=== PATIENT | female | born 1980 | race Caucasian/White ===

== ENCOUNTER 2019-06-12 08:05 | Emergency (ER) | payer BC, SELFPAY ==
[2019-06-12 08:12] VITALS: BP 103/58; PULSE 84; RESP 14; TEMP 36.4; O2SAT 100
[2019-06-12 08:42] LABS: Basophils Percent Auto 0.1 % (0.2-1.2); Eosinophils Percent Auto 0.3 % (0-4.4); Hematocrit 42.2 % (37.0-47.0); Hemoglobin 14.3 g/dL (12.0-15.0); Immature Granulocyte Absolute 0.03 K/mm3 (0.00-0.031); Immature Granulocyte Percent A 0.3 % (0-0.5); Lymphocytes Absolute Auto 1.55 K/mm3 (0.9-3.2); Lymphocytes Percent Auto 16.7 % (18.3-44.2); Mean Corpuscular HGB Conc 33.9 g/dl (32-36); Mean Corpuscular Hemoglobin 30.7 pg (26-34); Mean Corpuscular Volume 90.6 fl (80-100); Mean Platelet Volume 10.3 fl (7.4-10.4); Monocytes Absolute Auto 0.5 K/mm3 (0.1-0.6); Monocytes Percent Auto 5.3 % (2.6-8.5); Neutrophils Absolute Auto 7.2 K/mm3 (1.3-6.7); Neutrophils Percent Auto 77.3 % (45.5-73.1); Platelet Count Result 183 k/mm3 (150-375); Red Blood Count 4.66 M/mm3 (4.2-5.4); Red Cell Distribution Width 11.9 % (11.5-14.5); White Blood Count 9.3 K/mm3 (4.5-10.0)
[2019-06-12 08:52] LABS: Alanine Aminotransferase 28 U/L (4-35); Albumin Level 4.2 g/dL (3.5-5.1); Alkaline Phosphatase 67 U/L (38-126); Aspartate Amino Transferase 31 U/L (14-36); Bilirubin,Total 1.7 mg/dL (0.2-1.3); Blood Urea Nitrogen 10 mg/dL (7-17); Calcium 8.6 mg/dL (8.4-10.2); Carbon Dioxide 27 mmol/L (22-30); Chloride 103 mmol/L (98-107); Estimated CRCL calculation 64 ml/min; Estimated Glomerular Filt Rate > 60; Glucose 91 mg/dL (65-105); Lipase 72 U/L (23-300); Potassium 3.6 mmol/L (3.4-5.0); Sodium 139 mmol/L (137-145)
--- NOTE | 2019-06-12 09:43 | ED.ABDPAIN ---
HPI - Abdominal Pain General Chief Complaint: Abdominal Pain Stated Complaint: Bloody Diarrhea Time Seen by Provider: 06/12/19 09:06 Source: patient Mode of arrival: ambulatory Limitations: no limitations History of Present Illness HPI narrative: Patient is a 39-year-old female who presents to emergency department for evaluation of rectal bleeding and diarrhea that began yesterday patient notes that she had some chills sweats and cramping followed by loose stools and had been straining and after which developed some bright red blood per rectum patient denies any fever chills nausea vomiting notes that her diarrhea is resolved patient is noticed bright blood and mucus with cramping of the abdomen. Patient denies recent antibiotic use travel or sick contacts. Patient on arrival to emergency department resting comfortably in the room in no distress. Patient does not take anything for her symptoms. Patient notes a week ago she got over the flu which has resolved Related Data Home Medications Medication Instructions Recorded Confirmed metronidazole 1 applic TOPICAL DAILY 06/12/19 Allergies Allergy/AdvReac Type Severity Reaction Status Date / Time Sulfa (Sulfonamide Allergy Mild Hives Verified 06/12/19 09:50 Antibiotics) Review of Systems Review of Systems: All systems reviewed & are unremarkable except as noted in HPI and below PMFSH Surgical History Surgical History H/O section Social History Social History Smoking status: Current every day smoker Gender identity (if verbalized by the patient): Female Exam Narrative: Exam Narrative: GENERAL: Well-appearing, well-nourished, and in no acute distress. HEAD: Normocephalic, atraumatic. EYES: PERRLA and EOMI. ENT: Nares clear, no rhinorrhea or epistaxis. Mucous membranes moist. Oropharynx without tonsillar hypertrophy exudate or other lesions. NECK: Supple. No adenopathy or masses. CHEST: Clear to auscultation. No respiratory distress. No wheezes rales or rhonchi HEART: Regular rate and rhythm. No murmur heard. Normal peripheral pulses. ABDOMEN: Soft, nontender, nondistended EXTREMITIES: Normal range of motion. No edema. SKIN: Warm, dry, no rash. NEURO: No focal deficits. Alert and oriented x3. PSYCH: Normal mood and affect. Course Course Emergency Course: Patient in the room in no distress aware of case findings treatment plan and diagnosis agreeing to follow-up as directed or to return if symptoms worsen or concerns Vital Signs Vital signs: Vital Signs Temperature 97.5 F L 06/12/19 08:12 Pulse Rate 84 06/12/19 08:12 Respiratory Rate 14 06/12/19 08:12 Blood Pressure 103/58 L 06/12/19 08:12 Pulse Oximetry 100 06/12/19 08:12 Temperature 97.5 F L 06/12/19 08:12 Pulse Rate 84 06/12/19 08:12 Respiratory Rate 14 06/12/19 08:12 Blood Pressure 103/58 L 06/12/19 08:12 Pulse Oximetry 100 06/12/19 08:12 MDM - Abdominal Pain MDM Narrative Medical decision making narrative: Patient in the room in no distress aware of case findings treatment plan and diagnosis with likely enteritis possibly rectal bleeding secondary to colitis or more likely internal hemorrhoid bleeding patient with normal vital signs not orthostatic no high risk changes in the blood work felt appropriate for outpatient reevaluation provided with reasons to return agreeing to do so if symptoms worsen patient is resting comfortably in the room in no distress nontender abdominal exam Lab Data Result diagrams: 06/12/19 08:29 06/12/19 08:30 Labs: Lab Results 06/12/19 06/12/19 06/12/19 Range/Units 08:29 08:29 08:30 WBC 9.3 (4.5-10.0) K/mm3 RBC 4.66 (4.2-5.4) M/mm3 Hgb 14.3 (12.0-15.0) g/dL Hct 42.2 (37.0-47.0) % MCV 90.6 (80-100) fl MCH 30.7 (26-34) pg MCHC 33.9 (32-36) g/
[2019-06-12 09:46] VITALS: BP 111/78; PULSE 67
[2019-06-12 09:47] VITALS: BP 108/75; PULSE 77
[2019-06-12 09:48] VITALS: BP 100/74; PULSE 87
[2019-06-12 09:49] VITALS: BP 111/74; PULSE 67; RESP 14; O2SAT 100
[2019-06-12] MEDS: FAMOTIDINE 20 MG/2 ML VIAL IV PUSH (09:55)
[2019-06-12] MEDS: SODIUM CHLORIDE 0.9% IV 1,000 ML 999 ML IV CONT (09:55)
[2019-06-12 10:43] VITALS: BP 108/77; PULSE 71; RESP 17; O2SAT 100
== END 2019-06-12 10:44 | disposition home or self-care (01) ==
PROVIDERS: Emergency Provider Emergency Medicine; PCP Internal Medicine
DX: R10.9 Unspecified abdominal pain (principal); F17.210 Nicotine dependence, cigarettes, uncomplicated
CPT/HCPCS: 36415; 80053; 81025; 83690; 85025; 96361; 96374; 99284; J7030

== ENCOUNTER → 2022-06-20 13:17 | Outpatient (CLI) | payer BC, SELFPAY ==
--- NOTE | ~2022-06-20 | MM_ITS ---
EXAMINATION: MM screening anne-marie BI w donny HISTORY: Screening TECHNIQUE: Craniocaudal and mediolateral oblique 3-D tomosynthesis images were obtained and synthetic 2-D images were generated. CAD analysis was submitted and interpreted. COMPARISON: No prior studies for comparison. BREAST PARENCHYMAL COMPOSITION: The breasts are heterogeneously dense, which may obscure small masses . FINDINGS: There is no evidence of suspicious mass, calcification, or architectural distortion to sugg est malignancy in either breast. There has been no suspicious interval change. IMPRESSION: 1. No mammographic evidence of malignancy. 2. Recommend routine screening mammography in one year. BI-RADS Category 1: Negative Reviewed, dictated and finalized at location A.
== END ==
PROVIDERS: PCP Obstetrics & Gynecology; Visit Provider Obstetrics & Gynecology
DX: Z12.31 Encounter for screening mammogram for malignant neoplasm of breast (principal)
CPT/HCPCS: 77063; 77067

== ENCOUNTER 2024-03-14 12:00 | Outpatient (CLI) | payer BC, SELFPAY ==
--- NOTE | ~2024-03-14 | MM_ITS ---
EXAMINATION: MM screening anne-marie BI w donny HISTORY: Screening TECHNIQUE: Craniocaudal and mediolateral oblique 3-D tomosynthesis images were obtained and synthetic 2-D images were generated. CAD analysis was submitted and interpreted. COMPARISON: 06/20/2022 BREAST PARENCHYMAL COMPOSITION: Dense: The breasts are heterogeneously dense, which may obscure small masses FINDINGS: There is no evidence of suspicious mass, calcification, or architectural distortion to sugg est malignancy in either breast. There has been no suspicious interval change. IMPRESSION: 1. No mammographic evidence of malignancy. 2. Recommend routine screening mammography in one year. BI-RADS Category 1: Negative Reviewed, dictated and finalized at location B. 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
== END 2024-03-14 12:01 | disposition home or self-care (01) ==
LOC: MICIMG 12:01
PROVIDERS: PCP Hospitalist; Visit Provider Obstetrics & Gynecology
DX: Z12.31 Encounter for screening mammogram for malignant neoplasm of breast (principal)
CPT/HCPCS: 77063; 77067

== ENCOUNTER 2025-03-24 13:00 | Outpatient (CLI) | payer BC, SELFPAY ==
--- NOTE | ~2025-03-24 | MM_ITS ---
EXAMINATION: MM screening anne-marie BI w donny HISTORY: Screening. TECHNIQUE: Craniocaudal and mediolateral oblique 3-D tomosynthesis images were obtained and synthetic 2-D images were generated. CAD analysis was submitted and interpreted. COMPARISON: 2023 and 2022 BREAST PARENCHYMAL COMPOSITION: Dense: The breasts are heterogeneously dense, which may obscure small masses. FINDINGS: No suspicious masses are seen. There are no suspicious calcifications. No unexplained architectural distortion is seen. There are no skin or nipple abnormalities identified. There is no adenopathy seen on the images submitted. IMPRESSION: No mammographic evidence to suggest malignancy is seen. The patient may return to screening mammography as per ACR guidelines. BI-RADS 1 - Negative. Reviewed, dictated and finalized at location A. ERBUG OPERATOR
--- OUTSIDE RECORDS SUMMARY | 2025-03-24 14:45 | XMS_ITS | Encounter Summary ---
Author Organization [facility] Healthcare Address [address] [place] [id number] Care Team Providers Care Sawyer Cork Slabs Name Role Phone Luís Alejandra MD Primary Care Provider [phone] Encounter Details Date Type Department Care Team (Late st Contact Info) Description 12/23/2024 Telephone Family Phys[facility] [address] [place] [address] Luís Alejandra MD [address] [place] [address] Social History Tobacco Use Types Packs/Day Years Used Date Smoking Tobacco: Never Smokeless Tobacco: Never AUDIT-C Answer Date Recorded Q1: How often do you have a drink containing alc ohol? 2-4 times a month 10/03/2024 Q2: How many drinks containi ng alcohol do you have on a typical day when you are drinking? 1 or 2 10/03/2024 Q3: How often do you have si x or more drinks on one occasion? Never 10/03/2024 PHQ-2 Answer Date Recorded PHQ-2 Total Score (If total score is 3 or more points, staff should administer the PHQ-9) 1 03/25/2024 PHQ-9 Answer Date Recorded PHQ-9 Total Score 2 03/25/2024 Personal Safety Answer Date Recorded Have you ever been in or are you currently in a harmful physical or emotional relationship or is someone making you feel afraid or unsafe? 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
--- OUTSIDE RECORDS SUMMARY | 2025-03-24 14:45 | XMS_ITS | Clinical Summary ---
Author Organization [facility] Address [address] [place] [address] Care Team Providers Care Plant Floor Automation Manager Name Role Phone Jemal Cavazos MD Primary Care Provider [phone] Allergies Active Allergy Reactions Criticality Noted Date Comments Sulfa Antibiotics Unknown 10/03/2012 Medications meclizine 12.5 MG tablet Take 12.5 mg by mouth 3 (three) times daily as needed for Dizziness. Active montelukast 10 MG tabletIndications:A sthma ([facility]) Take 1 tablet (10 mg total) by mouth nightly at bedtime. 90 tablet 3 0 Active Levocetirizine Dihydrochloride 5 MG TabIndications:Asth ma ([facility]) Take 1 tablet by mouth nightly at bedtime. 90 tablet 3 0 Active albuterol sulfate HFA 108 (90 Base) MCG/ACT inhalerIndications: Asthma ([facility]) Inhale 2 puffs into the lungs every 4 (four) hours as needed for Wheezing or Shortness of breath. 3 Inhaler 3 0 Active temazepam 30 MG capsuleIndications: Primary insomnia Take 1 capsule (30 mg total) by mouth nightly as needed for Sleep. 30 capsule 2 0 Active CITALOPRAM 20 MG tabletIndications:R ecurrent major depressive disorder, in full remission TAKE 1 TABLET BY MOUTH EVERY DAY 90 tablet 0 Active metroNIDAZOLE 0.75 % creamIndications:Ro sacea Apply topically daily. Patient must be seen for further refills 45 g 1 Active Active Problems Problem Noted Date Diagnosed Date Vertigo 02/11/2019 Vaginal discharge 09/15/2015 Urinary tract infection 06/15/2015 Sinusitis 12/29/2014 Fatigue 04/29/2014 Abnormal menses 10/03/2012 Anxiety 10/03/2012 Asthma 10/03/2012 Depression 10/03/2012 Rosacea 10/03/2012 Social History Tobacco Use Types Packs/Day Years Used Date Smoking Tobacco: Never Smokeless Tobacco: Never Alcohol Use Standard Drinks/Week Comments Yes 0 (1 standard drink = 0.6 oz pur e alcohol) AUDIT-C Answer Date Recorded Frequency of Alcohol Consumption Monthly or less 02/11/2019 Average Number of Drinks 1 or 2 019 Frequency of Binge Drinking Never 02/01 PHQ-2 Answer Date Recorded PHQ-2 Score 0 03/12/2019 Comments No Sex and Gender Information Value Date Recorded Sex Assigned at Not on file Legal Sex Female 8:00 PM CDT Gender Identity Not on file Sexual Orientation Not on file Last Filed Vital Signs Vital Sign Reading Time Taken Comments Blood Pressure 112/70 06/10/2019 11:24 AM CDT Pulse 63 06/10/2019 11:24 AM CDT Temperature - - Respiratory Rate 18 06/10/2019 11:24 AM CDT Oxygen Saturation 96% 06/10/2019 11:24 AM CDT Inhaled Oxygen Concentration - - Weight 56.2 kg (124 lb) 06/10/2019 11:24 AM CDT Height 157.5 cm (5' 2) 06/10/2019 11:24 AM CDT Body Mass Index 22.68 06/10/2019 11:24 AM CDT Plan of Treatment Health Maintenance Due Date Last Done Comments Cervical Cancer Screening Pa p Smear (Age 30 to 64) Every 3 Years 1979 Colorectal Cancer Screening Colonoscopy (10 Years) 1979 Annual Physical 06/03/1982 Hepatitis C 06/03/1997 DTaP, Tdap and Td Vaccines ( 1 - Tdap) 06/03/1998 Hepatitis B Vaccines (1 of 3 - 19+ 3-dose series) 06/03/1998 Pneumococcal Vaccine: Pediat rics (0 to 5 Years) and At-Risk Patients (6 to 49 Years) (1 of 2 - PCV) 06/03/1998 HPV Vaccines (1 - 3-dose SCD M series) 06/03/2006 Cervical Cancer Screening Pa p with HPV Testing (Age 30 to 64) Every 5 Years 06/03/2009 Cervical Cancer Screening with HPV 06/03/2009 Mammogram Screening 2019 COVID-19 Vaccine (2024-2 6 season) 2024 Influenza Adult (#1) 2025 Hepatitis A Vaccines Aged Out No long er eligible based on patient's age to complete this topic Meningococcal B Vaccine Aged Out No l onger eligible based on patient's age to complete this topic Meningococcal Vaccine Aged Out No jo ann olga eligible based on patient's age to complete this topic RSV Immunizations Under 20 Months Aged Out No longer eligible based on patient's age to complete this topic Insurance [facility] [address] Care Teams Plant Floor Automation Manager Relationship Specialty Start Date End Date Jemal Cavazos MD [address] [place], [place] [id number] PCP - General INTERNAL MEDICINE 02/11/19
--- OUTSIDE RECORDS SUMMARY | 2025-03-24 14:45 | XMS_ITS | Clinical Summary ---
Author Organization [address] Address [address] [facility] [address] [place] [address] Care Team Providers Care Monitor And Storage Bin Tender Name Role Phone Luís Alejandra MD Primary Care Provider [phone] Allergies Active Allergy Reactions Criticality Noted Date Comments Latex Hives Medium 07/16/2020 Sulfa (Sulfonamide Antibiotics) Hives Medium 07/02 Medications ALBUTEROL SULFATE INHAL Inhale Active nitrofurantoin (MACRODANTIN) 100 mg capsule Take 1 capsule (100 mg total) by mouth 01/26/20 23 Active benzonatate (TESSALON) 100 mg capsuleIndicati ons:Cough Take 1 capsule (100 mg total) by mouth 3 (three) times a day as needed for cough 30 capsule 06/12/19 24 Active magnesium glycinate 100 mg tablet Take 120 mg by mouth as needed For hip joint pain and anxiety; pt takes up to 2-4x daily 10/16/19 24 Active APPLE CIDER VINEGAR ORAL Take 750 mg by mouth 2 (two) times a day For appetite suppression 10/16/19 24 Active vit D3-vit U-fcofwfmac-cxg s [phone] udkf-fpe-eb-mg tablet Take by mouth Active senna (SENOKOT) 8.6 mg tablet Take 1-2 tablets daily as needed for management of chronic constipation. 60 tablet 1 03/25/20 24 Active simethicone (MYLICON) 125 mg chewable tablet Take 1 tablet (125 mg total) by mouth 4 (four) times a day as needed (cramping/bloati ng/gas/nausea) 120 tablet 3 03/25/20 24 Active famotidine (PEPCID) 20 mg tablet Take 1 tablet (20 mg total) by mouth 2 (two) times a day as needed for indigestion or heartburn 180 tablet 1 03/25/20 24 Active naltrexone (DEPADE) 50 mg tabletIndicatio ns:Current mild episode of major depressive disorder, unspecified whether recurrent Take 1 tablet (50 mg total) by mouth daily 30 tablet 11 04/05/19 25 026 Active metroNIDAZOLE (METROCREAM) 0.75 % cream APPLY TO AFFECTED AREA TWICE A DAY 45 g 1 06/18/19 25 Active meclizine (ANTIVERT) 12.5 mg tablet TAKE 1 TABLET BY MOUTH 3 TIMES A DAY NEEDED FOR DIZZINESS. 90 tablet 4 06/19/19 25 Active omega-3 fatty acids-fish oil 300-1,000 mg capsule Take 2 capsules (2 g total) by mouth daily Active biotin 10,000 mcg capsule Take by mouth Acti ve Lactobac. rhamnosus GG-inulin 10 billion cell -200 mg capsule, sprinkle Take by mouth Active polyethylene glycol (MIRALAX) 17 gram packetIndicatio ns:constipation Take 1 packet (17 g total) by mouth daily Active bisacodyl EC (DULCOLAX EC) 5 mg EC tabletIndicatio ns:constipation Take 1 tablet (5 mg total) by mouth daily as needed for constipation Active carboxymethylce llulose (REFRESH PLUS) 0.5 % dropperette 1 drop Active buPROPion XL (WELLBUTRIN XL) 150 mg 24 hr tabletIndicatio ns:Current mild episode of major depressive disorder, unspecified whether recurrent Take 2 tablets (300 mg total) by mouth every morning 180 tablet 1 12/24/19 25 Active albuterol HFA (PROVENTIL HFA,VENTOLIN HFA,PROAIR HFA) 90 mcg/actuation inhaler Inhale 2 puffs every 6 (six) hours as needed for shortness of breath or wheezing 8.5 each 14 01/28/20 25 Active temazepam (RESTORIL) 30 mg capsule temazepam 30 mg capsule TK ONE C PO QHS 10/29/19 20 04/15/2 021 Discontin ued(Reord er) Active Problems Problem Noted Date Diagnosed Date Physical exam, annual 04/08/2024 Assessment & Plan (04/08/2024 1:59 PM ORGANIZATION DEVELOPMENT CONSULTANT): - overdue for mammogram, encouraged to schedule - follow-up with rn on site for routine well-woman care/cervical cancer screening - colonoscopy for 09/13/24 - routine labs reviewed - recommend flu vaccine, COVID booster Elevated lipoprotein(a) 04/08/2024 Assessment & Plan (04/08/2024 2:09 PM ORGANIZATION DEVELOPMENT CONSULTANT): - chronic; LDL elevated at 154, goal < 100 - T chol 214, HDL 47, triglycerides 75 - low ASCVD risk- < 0.7% - recommend lifestyle modifications including low-fat/high-fiber diet, increase physical activity; if persistently elevated, may consider low-dose statin therapy The 10-year ASCVD risk score (Aida JAMA, et al., 2019) is: 0.7% Values used to calculate the score: Age: 43 years Sex: Female Is Non- : No Diabetic: No Tobacco smoker: No Systolic Blood Pressure: 103 mmHg Is BP treated: No HDL Cholesterol: 47 mg/dL Total Cholesterol: 214 mg/dL Overweight with body mass in dex (BMI) of 28 to 28.9 in adult 04/08/2024 Assessment & Plan (04/08/2024 2:33 PM ORGANIZATION DEVELOPMENT CONSULTANT): - Pt reports difficulty losing weight, interested in medication-assisted weight loss, discussed available options including bupropion-naltrexone, she will contact office if would like to initiate - low-fat/high-fiber diet - aim for at least 150 min moderate to intense aerobic activity weekly Encounter for screening colonoscopy 11/09/2023 BRBPR (bright red blood per rectum) 04/07/2023 Constipation 04/07/2023 Family history of colon cancer 04/07/2023 Change in bowel habits 04/07/2023 Meniere's disease (cochlear hydrops), unspecified laterality 01/12/2022 Assessment & Plan (04/18/2022 12:58 PM ORGANIZATION DEVELOPMENT CONSULTANT): Patient reports abnormal sensation, and ear fullness at beginning a day, especially with significant changes in weather Unclear if presentation from Meniere's disease verses other conditions Will continue to monitor Assessment & Plan (01/12/2022 10:53 AM CDT): Patient has few episodes of vertigo or disequilibrium Occurs mostly immediately after traveling Has had few episodes since 2017; no significant has episodes since 2018 until December 2021 Will continue to monitor, if symptoms become more frequent or persistent; will evaluate for dietary or medical treatment options Primary insomnia 07/12/2021 Assessment & Plan (11/07/2022 2:56 PM CDT): Stable, generally well controlled; improving; patient reports she is sleeping better and she is in sober housing Continue to monitor Assessment & Plan (07/12/2021 11:05 AM CDT): Unclear etiology; patient is able to initiate sleep well, but has episodes of waking up in unable to fall back asleep Patient reports some increased stressors at home given family health concerns Encouraged patient to work on techniques to help falling back asleep, including getting out of bed, working on small quiet task, and continued with journaling as well as reading If no improvement, would recommend patient refer to counseling Menometrorrhagia 07/16/2020 Fibrocystic disease of breast 07/16/2020 Adhesive capsulitis of right shoulder 02/25/2020 Rosacea 10/03/2012 Assessment & Plan (11/07/2022 2:56 PM CDT): Stable, well controlled; continue MetroCream p.r.n. Assessment & Plan (08/04/2020 8:39 AM CDT): Stable, continue with Hydrogel Discussed with patient avoiding irritants Depression 10/03/2012 Assessment & Plan (04/08/2024 2:04 PM ORGANIZATION DEVELOPMENT CONSULTANT): - chronic, partially controlled - discussed starting bupropion XL 150 mg daily, she will notify office if she would like to start Asthma 10/03/2012 Assessment & Plan (11/07/2022 2:57 PM CDT): No major issues; continue albuterol p.r.n. Assessment & Plan (04/18/2022 12:58 PM ORGANIZATION DEVELOPMENT CONSULTANT): Generally well controlled, the patient reports recent increase in use due to multiple viral infections Uses albuterol as often as every 4 hours for severe cold symptoms and wheezing Continue albuterol p.r.n.; Assessment & Plan (01/12/2022 10:52 AM CDT): Rare issues with dyspnea; has been well controlled with change in seasons Will continue to monitor Assessment & Plan (12/13/2021 3:15 PM CDT): Stable, well controlled; continue Claritin daily p.r.n. Albuterol p.r.n. Assessment & Plan (07/12/2021 11:06 AM CDT): Stable, well controlled; mostly seasonal in nature at due to high pollen counts Patient continue Xyzal 5 mg, singular 10 mg nightly Albuterol p.r.n. for exacerbation Assessment & Plan (08/04/2020 8:39 AM CDT): Stable, well controlled on the new, using albuterol, Singulair and Xyzal for management Will continue to monitor, if patient requires increased dose of albuterol well encouraged to start daily inhaled steroid ELIAS (generalized anxiety disorder) 10/03/2012 Assessment & Plan (04/08/2024 2:12 PM ORGANIZATION DEVELOPMENT CONSULTANT): - chronic, partially controlled - discussed starting bupropion XL 150 mg daily, she will notify office if she would like to start- aware that this medication may cause worsening anxiety in some individuals - continues on diazepam prn Assessment & Plan (11/07/2022 2:56 PM CDT): Has stresso for high anxiety situations rs; going through divorce, but not living in environment -not always exposed -follows with individual counseling -avoids ex-; does lots of self coping, positive thoughts -sleeping has improved Given concerns of continued weight gain; will discontinue citalopram 20 mg daily; start Valium2 mg p.r.n. Assessment & Plan (04/18/2022 12:59 PM ORGANIZATION DEVELOPMENT CONSULTANT): Stable, well controlled; reports improvement with mood, feeling more at ease No longer suffering from significant insomnia Has improvement of symptoms with individual counseling Patient reports some side effects including possible weight gain caused by citalopram; reviewing records, patient is up about 3 lb from heaviest weight, 8 lb for most recent weight Continue citalopram 20 mg daily Will continue to monitor, if patient continues to gain weight, will discuss other therapeutic options Assessment & Plan (01/12/2022 10:52 AM CDT): Well controlled; anxiety is improved with Celexa; controlled current dose, no need for Ativan 2 mg continue citalopram 20 mg daily Assessment & Plan (12/13/2021 3:16 PM CDT): Not well controlled, worsening; patient reports multiple stressors at home and work, including increased workload that she has limited control over; as well as multiple stressors at home; including shoulder preparing to graduate high school Continue Ativan 2 mg p.r.n. for severe anxiety Today will start citalopram 20 mg daily Assessment & Plan (07/12/2021 11:05 AM CDT): Stable, generally well controlled; patient reports that she has some symptoms, mostly on weekends Given symptoms only occur to 7 days, patient would prefer to look at as needed medications at this time; will continue lorazepam 2 mg as needed for anxiety; patient notes that she is using more frequently, or becoming more dependent on would consider starting daily medication Encouraged patient to engage with counseling as needed Assessment & Plan (08/04/2020 8:40 AM CDT): Stable, well controlled, continue lorazepam 2 mg nightly Recently has increased stressors related to work and children Encounters Date Type Department Care Team Description 02/26/2025 8:00 AM ORGANIZATION DEVELOPMENT CONSULTANT Social Work [facility] [address] [address] Charlotte Cruz, STILL OPERATOR BRANDY 02/17/2025 Telephone [facility] [address] [address] Charlotte Cruz, STILL OPERATOR BRANDY 02/07/2025 Telephone [facility] [address] [address] Luís Alejandra MD Medical Question/Miscellaneo us 01/10/2025 Telephone [facility] [address] [address] Luís Alejandra MD Medical Question/Miscellaneo us 12/23/2024 Nurse Triage [facility] [address] [address] Luís Alejandra MD Current mild episode of major depressive disorder, unspecified whether recurrent 12/23/2024 Telephone [facility] [address] [address] Luís Alejandra MD from Last 3 Months Immunizations Immunization Administration Dates Next Due Influenza, Unspecified 01/27/2023(Deferr ed: Patient Refused),01/01/2023(Deferred: Patient Refused),01/12/2022(Deferred: Patient Refused),01/01/2022(Deferred: Patient Refused),04/03/2021(Deferred: Patient Refused),04/03/2021(Deferred: Patient Refused),01/01/2021(Deferred: Patient Refused),04/03/2020(Deferred: Patient Refused),04/03/2020(Deferred: Patient Refused),04/03/2020(Deferred: Patient Refused),04/03/2019(Deferred: Patient Refused) Tdap 08/25/2022 Surgical History Surgery Date Site/Laterality Comments SECTION 04/03/2003 - 04/02/2004 and 2007 ABLATION Uterine Ablation TUBAL LIGATION 01/23/2007 Bilateral COLONOSCOPY 09/13/2024 Medical History Medical History Date Comments Vertigo 2017 Asthma Seasonal allergies Anxiety Family History Medical History Relation Name Comments Lung cancer Brother Dx 10/31/23 Colon polyps Father COPD Mother due to smoking, 05/2023 end stage Hypertension Mother Colon cancer Paternal Grandmother No Known Problems Sister Relation Name Status Comments Brother Alive Father Alive Mother Alive Paternal Grandmother Sister Alive Social History Tobacco Use Types Packs/Day Years Used Date Smoking Tobacco: Never Smokeless Tobacco: Never Tobacco Cessation:Counseling Given: Not Answered AUDIT-C Answer Date Recorded Q1: How often [...] on file Legal Sex Female 1:37 AM ORGANIZATION DEVELOPMENT CONSULTANT Gender Identity Not on file Sexual Orientation Not on file Last Filed Vital Signs Vital Sign Reading Time Taken Comments Blood Pressure 126/70 09/13/2024 10:52 AM CDT Pulse 69 09/13/2024 10:52 AM CDT Temperature 36.4 C (97.5 F) 09/13/2024 10:52 AM CDT Respiratory Rate 20 09/13/2024 10:52 AM CDT Oxygen Saturation 100% 09/13/2024 10:52 AM CDT Inhaled Oxygen Concentration - - Weight 61.2 kg (135 lb) 09/13/2024 9:05 AM CDT Height 157.5 cm (5' 2) 09/13/2024 9:05 AM CDT Body Mass Index 24.69 09/13/2024 9:05 AM CDT Plan of Treatment Health Maintenance Due Date Last Done Comments Cervical Cancer Screening 1980 Hepatitis C Screening 1980 Varicella Vaccines (1 of 2 - 13+ 2-dose series) 06/03/1992 Hepatitis B Screening 06/03/1997 Pneumococcal vaccine <65 (1 of 2 - PCV) 06/03/1998 HPV Vaccines (1 - 3-dose SCD M series) 06/03/2006 Covid-19 Vaccine (2 - 2024-2 6 season) 2024 02/10/2021 Influenza Vaccine (#1) 2024 Breast Cancer Screening-Mammogram 03/14/2025 024, 07/07/2020 Depression Screening 03/25/2025 03/25/2024, 01/27/2023, 11/07/2022, Additional history exists Regular Well Visit/Exam 18-64 03/25/2025 03/25/2024 Colon Cancer Screening-Colonoscopy 09/13/20282024 DTaP/Tdap/Td Vaccine (2 - Td or Tdap) 08/25/2032 08/25/2022 Procedures Procedure Name Priority Date/Time Associated Diagnosis Comments COLONOSCOPY 09/13/2024 9:01 AM CDT SCREENING MAMMOGRAM BILATERAL W SARBJIT Schedule Routine, Read Routine (OP Routine) 03/14/2024 12:54 PM ORGANIZATION DEVELOPMENT CONSULTANT Encounter for screening mammogram for malignant neoplasm of breast from Last 3 Months or Most Recently Relevant to Health Maintenance Results * Colonoscopy (09/13/2024 9:01 AM CDT) Anatomical Region Laterality Modality Other Narrative Procedure Note Jeffy Olson MD - 09/13/2024 9:01 AM CDT [facility] Patient Name: Meme Crawley Procedure Date: 09/13/2024 9:01 AM Date of : 1980 Admit Type: Outpatient Age: 44 Gender: Female Attending MD: Jeffy Olson M.D. Room: [facility] ENDOSCOPY ROOM 1 Note Status: Finalized Patient Profile: This is a 44 year old female. Grandmother had colon cancer. Noted issues with the constipation that improved with MiraLax. Procedure: Colonoscopy Indications: Screening for colorectal malignant neoplasm, Thisis the patient's first colonoscopy Referring MD: Luís Alejandra M.D. Providers: Jeffy Olson M.D. Impression: - One 6 mm polyp in the ascending colon, removedwith a jumbo cold forceps. Resected and retrieved. - Internal hemorrhoids. Recommendation: - Await pathology results. - Repeat colonoscopy in 4 years for surveillance. - Continue present medications. Maintain high-fiber diet or take fiber supplements daily. Medicines: Monitored Anesthesia Care Complications: No immediate complications. Estimated Blood Loss: Estimated blood loss: none. Procedure: Pre-Anesthesia Assessment: - Prior to the procedure, a History and Physicalwas performed, and patient medications and allergieswere reviewed. The patient's tolerance of previous anesthesia was also reviewed. The risks andbenefits of the procedure and the sedation options and risks were discussed with the patient. All questions were answered, and informed consent was obtained. Prior Anticoagulants: The patient has taken noanticoagulant or antiplatelet agents. ASA Grade Assessment: Per anesthesia note and evaluation. After reviewing the risks and benefits, the patient was deemed in satisfactory condition to undergo the procedure. The benefits, risks and alternatives of theprocedure and sedation were discussed and informed consentwas obtained. All questions were answered. Please referto the signed informed consent document in the medical record. The bowel preparation used was Miralax and bisacodyl tablets via extended prep with split dose instruction. The scope was passed under directvision. The Pediatric Colonoscope [id number]-H190L [id number] was introduced through the anus and advanced to the the cecum, identified by appendiceal orifice andileocecal valve. The quality of the bowel preparation was excellent. Bowel prep was administered using asplit dose. Findings: The perianal and digital rectal examinations were normal. The cecum appeared normal. A 6 mm polyp was found in the ascending colon. The polyp was semi-sessile. The polyp was removed with a jumbo cold forceps.Resection and retrieval were complete. The rectum, sigmoid colon, descending colon and transverse colon appeared normal. Internal hemorrhoids were found during retroflexion. The hemorrhoids were small. Electronically signed by Jeffy Olson M.D. Jeffy Olson M.D. 09/13/2024 10:36:08 AM Number of Addenda: 0 Note Initiated On: 09/13/2024 9:01 AM Procedure Code(s): --- Professional --- 46847, Colonoscopy, flexible; with biopsy, single or multiple Diagnosis Code(s): --- Professional --- Z12.11, Encounter for screening for malignant neoplasm of colon K64.8, Other hemorrhoids D12.2, Benign neoplasm of ascending colon CPT copyright 2020 [employer]. All rights reserved. The codes documented in this report are preliminary and upon audio visual engineer reviewmay be revised to meet current compliance requirements. Recognized by the [employer] [employer] for promoting quality in endoscopy Jeffy Olson MD ENDOSCOPY PROCEDURES Final Result * SCREENING MAMMOGRAM BILATERAL W SARBJIT (03/14/2024 12:54 PM ORGANIZATION DEVELOPMENT CONSULTANT) Anatomical Region Laterality Modality Breast Bilateral Mammography Luís Alejandra MD IMG MAMMO PROCEDURES Denise l Result from Last 3 Months or Most Recently Relevant to Health Maintenance Insurance [employer] ACCESS OOS Advance Directives For more information, please contact: [phone] * Full Code (Latest Code Status on File) Date Activated Date Inactivated Comments 09/13/2024 9:01 AM 09/13/2024 3:10 PM * Full Code Date Activated Date Inactivated Comments 09/13/2024 9:01 AM 09/13/2024 9:01 AM Care Teams Monitor And Storage Bin Tender Relationship Specialty Start Date End Date [place]ís [place] [address] PCP - General Family Medicine 06/26/20
== END 2025-03-24 13:01 | disposition home or self-care (01) ==
LOC: CHSIMG 13:03
PROVIDERS: PCP Hospitalist; Visit Provider Obstetrics & Gynecology
DX: Z12.31 Encounter for screening mammogram for malignant neoplasm of breast (principal)
CPT/HCPCS: 77063; 77067